=== PATIENT | female | born 1945 | race Caucasian/White ===

== ENCOUNTER → 2017-02-09 | Outpatient (CLI) | payer MEDICARE, OTHER ==
--- NOTE | 2017-02-09 09:17 | KCIC ---
Examination: MRI of the right shoulder without contrast HISTORY: History of right shoulder pain, weakness COMPARISON: None available TECHNIQUE: Multiplanar, multisequence MR imaging of the right shoulder performed without contrast. Findings: The long head of the biceps tendon is not clearly identified within the bicipital groove. There is moderate increased signal identified in the subscapularis tendon likely tendinosis. There is increased signal at the junction of the subscapularis and supraspinatus tendon anterior fibers measuring about 8 mm in transverse dimension likely tear with extension of fluid in the subacromial subdeltoid bursa. There is increased signal identified in the midportion of the supraspinatus tendon, best visualized on series 7 image #10 likely a small focus of tear. Moderate tendinosis of the subscapularis, supraspinatus tendon. The infraspinatus tendon attachment grossly appears intact. There is mild increased signal identified throughout the labrum likely degeneration. There is obscuration of fat in the rotator interval. The visualized muscle bulk grossly appears unremarkable. Moderate degenerative changes identified in the acromial clavicular joint and the glenohumeral joint. The acromion is type II with the inferior aspect of the acromion abutting the superior aspect of the supraspinatus tendon. IMPRESSION: 1. Tear of junction of the subscapularis and supraspinatus tendon and in the midportion of the supraspinatus tendon without significant tendon retraction. There is extension of fluid in into the subacromial subdeltoid bursa. 2. The inferior aspect of the acromion abuts the superior aspect of the supraspinatus tendon. Correlate for impingement. 3. The long head of the biceps tendon is not identified could be subluxation or severe degeneration of the long head of the biceps tendon. Correlate clinically. 4. Mild increased signal identified throughout the labrum likely degeneration. 5. There is obscuration of fat in the rotator interval. Correlate with adhesive capsulitis. Electronically signed by: Jd Rob MD (02/09/2017 9:14 AM) [facility] [place]
== END | disposition home or self-care (01) ==
LOC: KCIC MRI 07:58
PROVIDERS: ATTEND Orthopaedic Surgery
DX: M75.101 Unspecified rotator cuff tear or rupture of right shoulder, not specified as traumatic (principal)
CPT/HCPCS: 73221

== ENCOUNTER → 2021-02-22 | Outpatient (CLI) | payer MEDICARE, OTHER ==
--- NOTE | 2021-02-22 13:25 | KCIC ---
EXAMINATION: MRI LEFT SHOULDER WITHOUT IV CONTRAST CLINICAL HISTORY: Acute left shoulder and upper arm pain x4 weeks without known injury 4 weeks ago. TECHNIQUE: Multiplanar multisequential images obtained through the shoulder without intravenous contr ast. COMPARISON: None FINDINGS: TENDONS: - Supraspinatus: Marked tendinosis without full-thickness tear. - Infraspinatus: Moderate to marked tendinosis without full-thickness tear. - Subscapularis: High-grade partial-thickness articular sided tearing/fraying in the superior fibers. - Teres Minor: Within normal limits. - Biceps Tendon: Long head biceps tendon medially perched in the bicipital groove with partial thickn ess tearing and marked tendinosis. MUSCLES: Muscle bulk and signal intensity are within normal limits. LABRUM: Circumferential labral degeneration with degenerative tearing in the superior and inferior la geovanny. Probable 8 mm paralabral cyst inferiorly. GLENOHUMERAL JOINT: - Joint Fluid: Large joint effusion with synovitis extending into the long head biceps tendon sheath. - Cartilage: Large areas of full-thickness chondral loss in the humeral head and glenoid with 1 cm rey bchondral trabecular fracture in the humeral head and moderate surrounding patchy marrow edema. No si gnificant articular surface depression. Additional subchondral marrow reactive/cystic changes in the glenoid. ACROMIOCLAVICULAR JOINT: Mild to moderate hypertrophic degenerative changes. BONES/MARROW: There is otherwise no evidence of acute fracture or suspicious marrow replacing process . OTHER: Mild thickening of the subacromial/subdeltoid bursa. IMPRESSION: Advanced glenohumeral degenerative changes with small subchondral trabecular fracture in the humeral head and large joint effusion with synovitis as described. High-grade partial-thickness subscapularis tendon tear with medially perched and partially torn long head biceps tendon at the bicipital groove. There is otherwise moderate to marked rotator cuff tendinosis with no full-thickness rotator cuff tea r. Electronically signed by: Dat Hernandez DO (02/22/2021 1:22 PM) [id number]
== END ==
LOC: KCIC MRI 08:31
DX: S46.912A Strain of unspecified muscle, fascia and tendon at shoulder and upper arm level, left arm, initial encounter (principal); M19.012 Primary osteoarthritis, left shoulder; M25.412 Effusion, left shoulder; M65.812 Other synovitis and tenosynovitis, left shoulder; M75.92 Shoulder lesion, unspecified, left shoulder; X58.XXXA Exposure to other specified factors, initial encounter; Y93.89 Activity, other specified; Y92.89 Other specified places as the place of occurrence of the external cause; Y99.8 Other external cause status
CPT/HCPCS: 73221